=== PATIENT | male | born 1970 | race Caucasian/White ===

== ENCOUNTER 2020-04-20 11:24 | Emergency (ER) | payer SELFPAY ==
--- NOTE | 2020-04-20 11:48 | ED Physician Documentation ---
PD HPI URI - Stated complaint Stated Complaint: C POSITIVE - History obtained from History obtained from: Patient, Other (pt speaks moderate Algerian but also used translation tablet.) - History of Present Illness Timing - onset: How many weeks ago (2) Timing duration: Weeks (2) Timing details: Gradual onset, Still present (worse the past 3-4 days, with couhg, chest pain, dyspnea. His with similar symptoms. [facility] states [facility] and was told positive next day. They have been quarantined at home since then with worsening symptoms. Pt is diabetic.) Associated symptoms: Fever, Chills, Nasal congestion, Sinus pain, Dry cough, Chest pain (with coughing), Dyspnea, Other (general aches and weakness). No: Hemoptysis, NVD, Bilateral edema Contributing factors: Sick contact (he and his sick together. Presume contact through extended family.). No: Travel, COPD / asthma Improves by: No: Medication (OTC cough meds) Worsened by: Activity Similar symptoms before: Has not had sx before Recently seen: Not recently seen (had COVID test but not seen by provider (was screening clinic)) Review of Systems Constitutional: reports: Fever, Chills, Myalgias, Fatigue Nose: reports: Rhinorrhea / runny nose, Congestion Throat: denies: Sore throat Cardiac: reports: Chest pain / pressure. denies: Palpitations, Pedal edema Respiratory: reports: Dyspnea, Cough, Wheezing GI: reports: Nausea. denies: Abdominal Pain, Vomiting, Diarrhea Skin: denies: Rash, Lesions Neurologic: reports: Generalized weakness, Headache (mild). denies: Focal weakness, Numbness, Near syncope Endocrine: denies: Weight loss Immunocompromised: denies: Immunocompromised PD PAST MEDICAL HISTORY - Past Medical History Cardiovascular: None Respiratory: None Neuro: None Endocrine/Autoimmune: Type 2 diabetes - Present Medications Home Medications: Ambulatory Orders Medication Instructions Recorded Confirmed Albuterol Sulf [Ventolin Hfa 3 - 4 puffs INH Q4HR PRN #1 inhaler 04/20/20 Inhaler] Benzonatate [Tessalon] 100 mg PO TID PRN #20 cap 04/20/20 - Allergies Allergies/Adverse Reactions: Allergies Allergy/AdvReac Type Severity Reaction Status Date / Time No Known Drug Allergies Allergy Verified 04/20/20 11:48 - Living Situation Living Situation: reports: With spouse/s.o. Living Arrangement: reports: At home - Social History Does the pt smoke?: No Does the pt drink ETOH?: No Does the pt have substance abuse?: No - Family History Family history: reports: Non contributory PD ED PE NORMAL - Vitals Vital signs reviewed: Yes (adequate sats, and HR. ) - General General: Alert and oriented X 3, Well developed/nourished - HEENT HEENT: Ears normal, Pharynx benign - Neck Neck: Supple, no meningeal sign, No adenopathy - Cardiac Cardiac: RRR, No murmur - Respiratory Respiratory: No: Clear bilaterally (some wheezing centrally. Mild crackles sound right base. ) - Abdomen Abdomen: Soft, Non tender - Back Back: No CVA TTP - Derm Derm: Normal color, Warm and dry - Extremities Extremities: No tenderness to palpate, Normal ROM s pain, No edema - Neuro Neuro: Alert and oriented X 3, No motor deficit, Normal speech Results - Vitals Vitals: Vital Signs - 24 hr 04/20/20 04/20/20 04/20/20 11:48 12:54 13:29 Temperature 37.4 C Heart Rate 95 89 95 Respiratory 19 20 20 Rate Blood Pressure 144/76 H 121/79 O2 Saturation 98 94 04/20/20 14:45 Temperature 37.5 C Heart Rate 96 Respiratory 24 Rate Blood Pressure 132/85 H O2 Saturation 98 Oxygen O2 Source Room air - Labs Labs: Laboratory Tests 04/20/20 12:41 POC Whole Bld Glucose 213 H - Rads (name of study) chest xray Radiology: Prelim report reviewed (no infiltrates), See rad report PD MEDICAL DECISION MAKING - ED course Complexity details: re-evaluated patient (he is feeling better with MDI and meds. ), considered differential (patient does meet criteria for Bamlanivamab and I discussed it with Pharmacy. They approved it. They will mix and bring to ER.), d/w patient Departure - Departure Disposition: 01 Home, Self Care Clinical Impression: Pneumonia due to COVID-19 virus Dyspnea Qualifiers: Dyspnea type: shortness of breath Qualified Code(s): R06.02 - Shortness of breath Diabetes Qualifiers: Diabetes mellitus type: type 2 Diabetes mellitus intermediate manager insulin use: without intermediate manager use Diabetes mellitus complication status: without complication Qualified Code(s): E11.9 - Type 2 diabetes mellitus without complications Condition: Stable Record reviewed to determine appropriate education?: Yes Instructions: ED Viral Syndrome Follow-Up: [facility] [Provider Group] Prescriptions: Albuterol Sulf [Ventolin Hfa Inhaler] 3 - 4 puffs INH Q4HR PRN #1 inhaler PRN Reason: Shortness Of Air/Wheezing Benzonatate [Tessalon] 100 mg PO TID PRN #20 cap PRN Reason: Cough Comments: Stay well-hydrated. Use the albuterol inhaler 2 to 3 puffs 4 times a day for the next week or so. Then you can decrease to as needed for wheezing and trouble breathing. Use benzonatate as needed for cough. Tylenol or ibuprofen if needed for pains or fevers. I would anticipate improvement over the next several days to week. Recheck if not improving well in that timeframe. Return to the ER if worsening. Discharge Date/Time: 04/20/20 15:05
[2020-04-20] MEDS ORDERED: ALBUTEROL 1 PUFF INH STA (12:21)
[2020-04-20] MEDS ORDERED: BENZONATATE 100 MG CAPSULE PO STA (12:22)
[2020-04-20] MEDS ORDERED: diphenhydrAMINE ELIXIR 25 MG/10 ML UDC PO STA (12:22)
[2020-04-20] MEDS ORDERED: BAMLANIVIMAB 700 MG in SODIUM CHLORIDE 0.9% 250 ML IV STA (12:40)
--- NOTE | 2020-04-20 13:14 | XRAY Report ---
PROCEDURE: Chest 1 View X-Ray INDICATIONS: cough and dyspnea TECHNIQUE: One view of the chest was acquired. COMPARISON: None FINDINGS: Surgical changes and devices: None. Lungs and pleura: No pleural effusions or pneumothorax. Lungs are clear. Mediastinum: Mediastinal contours appear normal. Heart size is normal. Bones and chest wall: No suspicious bony lesions. Overlying soft tissues appear unremarkable. IMPRESSION: No evidence acute pulmonary process. Reviewed by: Chidi Elliott MD on 04/20/2020 12:13 PM [facility] Approved by: Chidi Elliott MD on 04/20/2020 12:13 PM [facility] Station ID: [id number]
[2020-04-20 14:47] VITALS: BP 132/85
== END 2020-04-20 15:05 | disposition home or self-care (01) ==
LOC: ED 11:24
DX: U07.1 COVID-19 (principal); J12.82 Pneumonia due to coronavirus disease 2019; E11.9 Type 2 diabetes mellitus without complications
CPT/HCPCS: 71045; 94640; 99284; A9270; M0239; Q0239